=== PATIENT | female | born 1995 | race Caucasian/White ===

== ENCOUNTER 2018-09-19 20:24 | Emergency (ER) | payer BC ==
[2018-09-19 20:47] VITALS: BP 132/87; PULSE 100; TEMP 99.1; BMI 25.9
--- NOTE | 2018-09-19 20:47 | PDOC ---
History of Present Illness - General Chief Complaint: Abscess Boil Stated Complaint: ABSCESS Time Seen by Provider: 09/19/18 20:29 - History of Present Illness Initial Comments: 09/19/18 20:38 Neisha Wall is a 23yF with PMHx of external hemorrhoids, IBS presenting with abscess. Noted pain and lump in anal region in May 2018. Over next 4 months, took 10d doxycycline and 5d clindamycin at a later date without relief. PCP noted erythematous external hemorrhoid on exam, unsure whether it was abscess or cyst. Yesterday, noted continuous blood and clear brown discharge from anal region. Currently has some pain with walking. Denies fever, chills, urinary urgency/hematuria/pyuria, vaginal discharge or bleeding. Never sexually active. Past History - Past Medical History Allergies/Adverse Reactions: Allergies Allergy/AdvReac Type Severity Reaction Status Date / Time Penicillins Allergy Unknown Verified 09/19/18 20:31 Home Medications: Ambulatory Orders Clindamycin [Cleocin -] 600 mg PO Q6H 09/19/18 Doxycycline Hyclate [Vibramycin] 100 mg PO BID 09/19/18 Norethindrone-E.estradiol-Iron [Junel Fe 1.5 mg-30 Mcg Tablet] 1 each PO DAILY 09/19/18 Omeprazole 20 mg PO DAILY PRN 09/19/18 Review of Systems - Review of Systems Constitutional: No: Chills, Fever, Malaise HEENTM: No: Eye Pain, Nose Pain, Nose Bleeding, Throat Pain, Mouth Pain Respiratory: No: Cough, Shortness of Breath, Stridor Cardiac (ROS): No: Chest Pain, Edema, Lightheadedness, Palpitations ABD/GI: No: Abdominal Distended, Constipated, Diarrhea, Nausea, Rectal Bleeding , Vomiting : No: Burning, Dysuria, Discharge, Frequency, Flank Pain, Hematuria, Incontinence Musculoskeletal: No: Back Pain, Joint Pain, Joint Swelling, Muscle Pain Integumentary: No: Bruising, Change in Color, Erythema, Flushing Neurological: No: Headache, Numbness, Paresthesia, Seizure, Tingling, Tremors Psychiatric: No: Anxiety, Depression, Stressors Endocrine: No: Excessive Sweating, Flushing, Intolerance to Cold, Intolerance to Heat Hematologic/Lymphatic: No: Anemia *Physical Exam - Physical Exam General Appearance: Yes: Nourished, Appropriately Dressed. No: Apparent Distress HEENT: positive: EOMI, ZIYAD, Hearing Grossly Normal. negative: Pale Conjunctivae, Nasal Congestion, Rhinorrhea Respiratory/Chest: positive: Lungs Clear, Normal Breath Sounds. negative: Chest Tender, Respiratory Distress, Crackles, Rales, Rhonchi, Stridor, Wheezing Cardiovascular: positive: Regular Rhythm, Regular Rate, S1, S2. negative: Edema , Murmur Rectal Exam: positive: hemorrhoids, other (3cm erythematous abscess on R inferior gluteal cleft 3cm away from rectal opening, minimal clear discharge with expression, tender to palpation) Integumentary: positive: Normal Color Neurologic: positive: Fully Oriented, Alert, Normal Mood/Affect, Normal Response , Responsive. negative: Confused, Disoriented Medical Decision Making - Medical Decision Making 09/19/18 22:05 Neisha Wall is a 23yF with PMHx of external hemorrhoids, IBS presenting with gluteal cleft abscess. 3cm tender, erythematous abscess on R inferior gluteal cleft seen on exam with minimal bleeding and discharge. Discharged home with instructions to apply gauze with bacitracin to the abscess until bleeding stops. Also apply lidocaine to affected area if tender. *DC/Admit/Observation/Transfer Diagnosis at time of Disposition: Abscess, gluteal cleft - Discharge Dispostion Disposition: HOME Condition at time of disposition: Good Decision to Admit order: No - Referrals Referrals: Eva Cheung [Primary Care Provider] - - Patient Instructions Printed Discharge Instructions: DI for Anal Abscess Additional Instructions: You were seen in the ED for your abscess. Apply lidocaine to the affected area if tender. Continue to apply gauze covered with bacitracin to the affected area until the bleeding and discharge stops. Please follow up with your primary care doctor regarding your ED visit. Come back to the ED if you have worsening pain, fever, or vomiting. - Post Discharge Activity
[2018-09-19] MEDS ORDERED: LIDOCAINE VISCOUS 2% ORAL/TOP 100 ML BOTTLE MM PRN (21:01)
[2018-09-19] MEDS ORDERED: BACITRACIN 15 GM TUBE TOPICAL OINTMENT TP ONE (21:05)
[2018-09-19] MEDS ORDERED: LIDOCAINE VISCOUS 2% ORAL/TOP 20 ML UNIT-DOSE CUP ONE (21:06)
--- NOTE | 2018-09-20 03:17 | PDOC ---
Documentation entered by Suzie Kemp SCRIBE, acting as scribe for Gilberto Sharp MD. Gilberto Sharp MD: This documentation has been prepared by the Viridiana kearney Brenda, SCRIBE, under my direction and personally reviewed by me in its entirety. I confirm that the documentation accurately reflects all work, treatment, procedures, and medical decision making performed by me. Attending Attestation - Resident Resident Name: Bashir Curry - ED Attending Attestation I have performed the following: I have examined & evaluated the patient, The case was reviewed & discussed with the resident, I agree w/resident's findings & plan, Exceptions are as noted - HPI HPI: 09/19/18 21:02 The patient is a 23 year old female, with a significant PMH of hemorrhoids who presents to the emergency department for evaluation of an abnormal growth on the right buttock. The patient reports having issues with hemorrhoids in August 2018, at which time she discovered the abcess. The patient reports feeling a pop in the abscess yesterday, and seeing clear/brown drainage. She states the abscess has been bleeding since this morning, and the pain is worsened with walking. She reports visiting her PCP for evaluation in August 2018 when the abcess first appeared, and was given doxycycline for 10 days to no avail. She then states getting a colonoscopy, with no findings. The patient then reports going on a cruise ship, where she felt pain walking due to the abcess, and was given Clindamycin by the ship doctor. Upon arriving home she visited the [employer], who reported that the abscess was not yellow in color enough to be drained. The patient denies trauma. Denies chest pain, shortness of breath,headache and dizziness. Denies fever, chills, nausea, vomiting, diarrhea Allergies: Penicillin Past surgical history: Social history: No reported PCP: Dr. Shannan Cheung - Physicial Exam PE: 09/19/18 21:02 GENERAL: Awake, alert, and fully oriented, in no acute distress HEAD: No signs of trauma EYES: PERRLA, EOMI, sclera anicteric, conjunctiva clear ENT: Auricles normal inspection, hearing grossly normal, nares patent, oropharynx clear without exudates. Moist mucosa NECK: Normal ROM, supple, no lymphadenopathy, JVD, or masses LUNGS: Breath sounds equal, clear to auscultation bilaterally. No wheezes, and no crackles HEART: Regular rate and rhythm, normal S1 and S2, no murmurs, rubs or gallops ABDOMEN: Soft, nontender, normoactive bowel sounds. No guarding, no rebound. No masses EXTREMITIES: Normal range of motion, no edema. No clubbing or cyanosis. No cords, erythema, or tenderness NEUROLOGICAL: Cranial nerves II through XII grossly intact. Normal speech, normal gait SKIN: +Slight area of ulceration and erythema on right buttock without tenderness or fluctuations. Warm, Dry, normal turgor. - Medical Decision Making 09/20/18 03:17 no evidence of residual infection topical bacitracin and viscous lidocaine
== END 2018-09-19 21:13 | disposition home or self-care (01) ==
LOC: FER 20:24
PROC: 0W9N0ZZ Drainage of Female Perineum, Open Approach (ICD-10-PCS; principal; 2018-09-19)
DX: L02.31 Cutaneous abscess of buttock (principal)
CPT/HCPCS: 99282-25